=== PATIENT | female | born 1965 | race Caucasian/White ===

== ENCOUNTER 2021-02-09 08:54 | Inpatient (IN) ==
[2021-02-09] MEDS ORDERED: methylPREDNISolone 125 MG/2 ML VIAL IVP ONE (09:11)
[2021-02-09] MEDS ORDERED: Ipratropium/Albuterol Neb 3 ML IH ONE (09:11)
[2021-02-09] MEDS ORDERED: Azithromycin 500 MG in 0.9 % Sodium Chloride 250 ML IVPB ONE (09:11)
[2021-02-09] MEDS ORDERED: cefTRIAXone 1,000 MG in Water for inj. (sterile) 10 ML IVP ONE (09:11)
[2021-02-09] MEDS ORDERED: Ipratropium/Albuterol Neb 3 ML ONE (09:12)
[2021-02-09 09:25] LABS: Basophils # 0.1 K/mcL (0.0-0.2); Basophils % 0.7 %; Eosinophils # 1.3 K/mcL (0.0-0.6); Eosinophils % 13.2 %; Hematocrit 43.5 % (35.3-44.9); Hemoglobin 14.2 g/dL (11.5-15.4); Immature Granulocytes % 0.2 % (0-4); Lymphocytes # 2.2 K/mcL (0.6-4.6); Lymphocytes % 22.2 %; Mean Corpuscular HGB Conc 32.6 g/dL (31.6-35.5); Mean Corpuscular Hemoglobin 29.2 pg (28.0-33.3); Mean Corpuscular Volume 89.3 fL (83.0-100.0); Mean Platelet Volume 11.1 fL (9.4-12.4); Monocytes # 0.8 K/mcL (0.0-1.3); Monocytes % 7.6 %; Neutrophils # 5.5 K/mcL (1.6-8.9); Platelet Count 246 K/mcL (140-400); Red Blood Count 4.87 M/mcL (3.82-4.97); Red Cell Distribution Width 13.1 % (11.5-14.5); Segmented Neutrophils % 56.1 %; White Blood Count 9.8 K/mcL (4.3-11.1)
[2021-02-09 09:44] LABS: BUN/Creatinine Ratio 9 (6-26); Blood Urea Nitrogen 9 mg/dL (6-20); Calcium 10.3 mg/dL (8.6-10.3); Carbon Dioxide 27 mEq/L (23-29); Chloride 104 mEq/L (98-107); Glucose 84 mg/dL (70-105); Osmolality,Calculated 286 (280-300); Sodium 139 mEq/L (136-145); Troponin I < 0.03 ng/mL (< 0.04); eGFR For African Americans > 60 (> 60); eGFR For Non-African Americans > 60 (> 60)
[2021-02-09 11:50] LABS: Adenovirus Not Detected (Not Detect); Bordetella Pertussis Not Detected (Not Detect); Chlamydophila pneumoniae Not Detected (Not Detect); Coronavirus 229E Not Detected (Not Detect); Coronavirus HKU1 Not Detected (Not Detect); Coronavirus NL63 Not Detected (Not Detect); Coronavirus OC43 Not Detected (Not Detect); Human Metapneumovirus Not Detected (Not Detect); Human Rhinovirus/Enterovirus Not Detected (Not Detect); Influenza A Subtype 2009 H1 Not Detected (Not Detect); Influenza B Not Detected (Not Detect); Mycoplasma pneumoniae Not Detected (Not Detect); Parainfluenza Virus 1 Not Detected (Not Detect); Parainfluenza Virus 2 Not Detected (Not Detect); Parainfluenza Virus 3 Not Detected (Not Detect); Parainfluenza Virus 4 Not Detected (Not Detect); Respiratory Syncytial Virus Not Detected (Not Detect); SARS-CoV-2 Not Detected (Not Detect)
[2021-02-09] MEDS ORDERED: *HR* HYDROcodone/Acet 5/325 mg TABLET PO PRN (13:07)
[2021-02-09] MEDS ORDERED: Ondansetron 4 MG/2 ML VIAL IVP PRN (13:07)
[2021-02-09] MEDS ORDERED: Naloxone 0.4 MG/ML INJ IVP PRN (13:07)
[2021-02-09] MEDS ORDERED: Dextrose Gel 15 GM/37.5 ML TUBE PO PRN ×2 (13:11)
[2021-02-09] MEDS ORDERED: *HR* Dextrose 50 % in Water (Vial) 50 ML VIAL IVP PRN (13:11)
[2021-02-09] MEDS ORDERED: D5% in Water 1,000 ML IVC PRN (13:11)
[2021-02-09] MEDS ORDERED: ALPRAZolam 1 MG TABLET PO PRN (13:14)
[2021-02-09] MEDS: Ipratropium/Albuterol Neb 3 ML IH SCH ×2 (16:19→19:59)
[2021-02-09] MEDS: carvediloL 6.25 MG TABLET PO SCH (16:24)
[2021-02-09] MEDS: Insulin LISPRO 300 UNITS/3 ML VIAL SUBQ SCH (17:00)
[2021-02-09] MEDS: Doxycycline 100 MG in 0.9 % Sodium Chloride Mini Bag 100 ML IVPB SCH (18:49)
[2021-02-09] MEDS: MethylPREDNISolone 40 MG/ML VIAL IVP SCH (18:55)
[2021-02-09] MEDS: Budesonide/Formoterol 160/4.5 1 PUFF INH IH SCH (20:00)
[2021-02-09] MEDS ORDERED: Insulin DETEMIR 100 UNIT/ML X5UNITS SUBQ SCH (21:00)
[2021-02-09] MEDS: Insulin DETEMIR 100 UNIT/ML X5UNITS SUBQ SCH (21:16)
[2021-02-10] MEDS: Ipratropium/Albuterol Neb 3 ML IH SCH ×5 (00:08→15:29)
[2021-02-10 01:59] LABS: Basophils % 0.1 %; Eosinophils % 0.1 %; Hemoglobin 13.2 g/dL (11.5-15.4); Immature Granulocytes % 0.5 % (0-4); Lymphocytes % 5.9 %; Mean Corpuscular HGB Conc 32.2 g/dL (31.6-35.5); Mean Corpuscular Hemoglobin 29.5 pg (28.0-33.3); Mean Corpuscular Volume 91.7 fL (83.0-100.0); Mean Platelet Volume 11.7 fL (9.4-12.4); Monocytes % 1.4 %; Platelet Count 226 K/mcL (140-400); Red Blood Count 4.47 M/mcL (3.82-4.97); Red Cell Distribution Width 12.9 % (11.5-14.5); White Blood Count 9.3 K/mcL (4.3-11.1)
[2021-02-10 02:00] LABS: Lymphocytes # 0.6 K/mcL (0.6-4.6); Monocytes # 0.1 K/mcL (0.0-1.3); Neutrophils # 8.5 K/mcL (1.6-8.9)
[2021-02-10 02:18] LABS: BUN/Creatinine Ratio 20 (6-26); Blood Urea Nitrogen 19 mg/dL (6-20); Calcium 9.6 mg/dL (8.6-10.3); Carbon Dioxide 24 mEq/L (23-29); Chloride 99 mEq/L (98-107); Glucose 445 mg/dL (70-105); Magnesium 1.8 mg/dL (1.6-2.6); Osmolality,Calculated 302 (280-300); Phosphorous 3.3 mg/dL (2.7-4.5); Potassium 4.7 mEq/L (3.5-5.1); Sodium 135 mEq/L (136-145); eGFR For African Americans > 60 (> 60); eGFR For Non-African Americans > 60 (> 60)
[2021-02-10] MEDS: MethylPREDNISolone 40 MG/ML VIAL IVP SCH (06:06)
[2021-02-10] MEDS: *HR* Enoxaparin 40 MG/0.4 ML SYRINGE SQ SCH (06:07)
[2021-02-10] MEDS: Doxycycline 100 MG in 0.9 % Sodium Chloride Mini Bag 100 ML IVPB SCH (06:07)
[2021-02-10] MEDS: Budesonide/Formoterol 160/4.5 1 PUFF INH IH SCH ×2 (07:37→22:13)
[2021-02-10] MEDS: Doxycycline 100 MG CAPSULE PO SCH ×2 (08:06→20:52)
[2021-02-10] MEDS: BuPROPion SR (12 HR) 150 MG TABLET PO SCH (08:06)
[2021-02-10] MEDS: FLUoxetine 20 MG CAPSULE PO SCH (08:07)
[2021-02-10] MEDS: Aspirin Enteric Coated 81 MG Tablet PO SCH (08:07)
[2021-02-10] MEDS: carvediloL 6.25 MG TABLET PO SCH ×2 (08:08→17:17)
[2021-02-10] MEDS: Insulin LISPRO 300 UNITS/3 ML VIAL SUBQ SCH ×4 (08:08→17:17)
[2021-02-10] MEDS ORDERED: GuaiFENesin/Dextromethorphan TABLET PO PRN (16:29)
[2021-02-10] MEDS ORDERED: Insulin LISPRO 300 UNITS/3 ML VIAL SUBQ ONE (16:50)
[2021-02-10] MEDS: Levalbuterol Neb 1.25 MG/3 ML IH SCH ×2 (18:13→22:10)
[2021-02-10] MEDS: Insulin DETEMIR 100 UNIT/ML X5UNITS SUBQ SCH (20:53)
[2021-02-10] MEDS ORDERED: Insulin LISPRO 300 UNITS/3 ML VIAL SUBQ SCH (21:00)
[2021-02-11] MEDS: Levalbuterol Neb 1.25 MG/3 ML IH SCH ×2 (04:18→09:55)
[2021-02-11] MEDS: *HR* Enoxaparin 40 MG/0.4 ML SYRINGE SQ SCH (05:53)
[2021-02-11 07:18] VITALS: BP 118/58
[2021-02-11] MEDS: Insulin LISPRO 300 UNITS/3 ML VIAL SUBQ SCH (08:07)
[2021-02-11] MEDS: Aspirin Enteric Coated 81 MG Tablet PO SCH (08:08)
[2021-02-11] MEDS: Doxycycline 100 MG CAPSULE PO SCH (08:08)
[2021-02-11] MEDS: FLUoxetine 20 MG CAPSULE PO SCH (08:09)
[2021-02-11] MEDS: BuPROPion SR (12 HR) 150 MG TABLET PO SCH (08:09)
[2021-02-11] MEDS ORDERED: predniSONE 20 MG TABLET PO SCH (09:00)
[2021-02-11] MEDS: Budesonide/Formoterol 160/4.5 1 PUFF INH IH SCH (09:56)
[2021-02-11 14:57] LABS: Estimated Average Glucose 169 mg/dl; Hemoglobin A1C 7.5 %
== END 2021-02-11 10:48 | disposition home or self-care (01) | DRG 192 ==
LOC: EMEROOARM 08:54 → 3BNU 08:54 → SUATTDRO 13:24 → 3BNU 13:52
PROVIDERS: ADMIT Internal Medicine; ATTEND Registered Nurse

== ENCOUNTER 2021-08-14 08:01 | Observation (INO) ==
[2021-08-14] MEDS ORDERED: *HR* FentaNYL (PF) 100 MCG/2 ML VIAL IVP ONE ×2 (08:06→10:11)
[2021-08-14] MEDS ORDERED: *HR* FentaNYL (PF) 100 MCG/2 ML VIAL IM ONE (08:30)
[2021-08-14 09:47] LABS: Basophils # 0.1 K/mcL (0.0-0.2); Basophils % 0.6 %; Eosinophils # 0.3 K/mcL (0.0-0.6); Eosinophils % 2.5 %; Hematocrit 39.5 % (35.3-44.9); Hemoglobin 12.9 g/dL (11.5-15.4); Immature Granulocytes % 0.5 % (0-4); Lymphocytes # 1.3 K/mcL (0.6-4.6); Lymphocytes % 10.2 %; Mean Corpuscular HGB Conc 32.7 g/dL (31.6-35.5); Mean Corpuscular Hemoglobin 29.8 pg (28.0-33.3); Mean Corpuscular Volume 91.2 fL (83.0-100.0); Mean Platelet Volume 11.5 fL (9.4-12.4); Monocytes # 0.6 K/mcL (0.0-1.3); Monocytes % 4.9 %; Neutrophils # 10.6 K/mcL (1.6-8.9); Platelet Count 309 K/mcL (140-400); Red Blood Count 4.33 M/mcL (3.82-4.97); Red Cell Distribution Width 12.3 % (11.5-14.5); Segmented Neutrophils % 81.3 %
[2021-08-14 09:49] LABS: BUN/Creatinine Ratio 17 (6-26); Blood Urea Nitrogen 16 mg/dL (6-20); Calcium 9.8 mg/dL (8.6-10.3); Carbon Dioxide 27 mEq/L (23-29); Chloride 104 mEq/L (98-107); Glucose 143 mg/dL (70-105); Osmolality,Calculated 290 (280-300); Potassium 4.2 mEq/L (3.5-5.1); Sodium 138 mEq/L (136-145); eGFR For African Americans > 60 (> 60); eGFR For Non-African Americans > 60 (> 60)
[2021-08-14 09:57] LABS: Prothrombin Time 11.4 Seconds (9.4-12.1)
[2021-08-14] MEDS ORDERED: Naloxone 0.4 MG/ML INJ IVP PRN ×2 (10:08→18:28)
[2021-08-14] MEDS ORDERED: Ondansetron 4 MG/2 ML VIAL IVP PRN ×2 (10:08→18:28)
[2021-08-14] MEDS ORDERED: Morphine Sulfate 2 MG/ML SYRINGE IVP PRN ×3 (10:11→18:28)
[2021-08-14] MEDS ORDERED: D5% in Water 1,000 ML IVC PRN ×3 (10:12→18:28)
[2021-08-14] MEDS ORDERED: *HR* Dextrose 50 % in Water (Syg) 50 ML SYRINGE IVP PRN ×3 (10:12→18:28)
[2021-08-14] MEDS ORDERED: Dextrose Gel 15 GM/37.5 ML TUBE PO PRN ×6 (10:12→18:28)
[2021-08-14] MEDS ORDERED: Insulin LISPRO 300 UNITS/3 ML VIAL SUBQ SCH ×2 (10:13→16:00)
[2021-08-14] MEDS ORDERED: Ipratropium/Albuterol Neb 3 ML IH PRN ×2 (13:42→18:28)
[2021-08-14] MEDS ORDERED: Ketorolac 15 MG/ML VIAL IVP ONE (16:34)
[2021-08-14] MEDS ORDERED: Acetaminophen IV 1,000 MG/100 ML BAG IVPB ONE ×3 (16:34→18:34)
[2021-08-14] MEDS ORDERED: Ropivacaine/PF 0.5% 30 ML VIAL ONE (17:36)
[2021-08-14] MEDS ORDERED: ROPIVACAINE/PF/NS 0.25% 1 EACH SYRINGE INTRAART ONE (17:37)
[2021-08-14] MEDS ORDERED: *HR* FentaNYL (PF) 100 MCG/2 ML VIAL ONE ×2 (17:41→18:01)
[2021-08-14] MEDS ORDERED: *HR* Midazolam HCl 2 MG/2 ML VIAL ONE (17:41)
[2021-08-14] MEDS ORDERED: Ondansetron 4 MG/2 ML VIAL ONE (17:45)
[2021-08-14] MEDS ORDERED: Lidocaine -MPF 2% 5 ML VIAL ONE (17:45)
[2021-08-14] MEDS ORDERED: *HR* Propofol 200 MG/20 ML VIAL IVP ONE (17:45)
[2021-08-14] MEDS ORDERED: Lidocaine/EPI 1:100k 1% 20 ML VIAL ONE (18:18)
[2021-08-14] MEDS ORDERED: Famotidine 20 MG/2 ML VIAL ONE (18:29)
[2021-08-14] MEDS ORDERED: CeFAZolin Syr 2,000MG/20 ML 2,000 MG/20 ML SYRINGE IVPB ONE (18:41)
[2021-08-14] MEDS ORDERED: *HR* HYDROMORPHONE 2 MG/ML VIAL ONE (20:01)
[2021-08-15] MEDS ORDERED: CeFAZolin 2,000 MG/120 ML BAG IVPB SCH ×2
[2021-08-15] MEDS: Insulin LISPRO 300 UNITS/3 ML VIAL SUBQ SCH ×5 (01:38→11:38)
[2021-08-15] MEDS ORDERED: *HR* Enoxaparin 40 MG/0.4 ML SYRINGE SQ SCH ×2 (07:00)
[2021-08-15 07:48] LABS: Basophils % 0.3 %; Hematocrit 35.3 % (35.3-44.9); Hemoglobin 11.6 g/dL (11.5-15.4); Immature Granulocytes % 0.7 % (0-4); Lymphocytes % 8.4 %; Mean Corpuscular HGB Conc 32.9 g/dL (31.6-35.5); Mean Corpuscular Hemoglobin 30.1 pg (28.0-33.3); Mean Corpuscular Volume 91.7 fL (83.0-100.0); Mean Platelet Volume 11.9 fL (9.4-12.4); Monocytes # 0.8 K/mcL (0.0-1.3); Monocytes % 6.8 %; Neutrophils # 9.9 K/mcL (1.6-8.9); Platelet Count 281 K/mcL (140-400); Red Blood Count 3.85 M/mcL (3.82-4.97); Red Cell Distribution Width 12.4 % (11.5-14.5); Segmented Neutrophils % 83.8 %; White Blood Count 11.9 K/mcL (4.3-11.1)
[2021-08-15] MEDS ORDERED: *HR* OxyCODONE Immed Rel 5 MG TABLET PO PRN (07:56)
[2021-08-15 08:14] LABS: Calcium 9.6 mg/dL (8.6-10.3); Magnesium 1.6 mg/dL (1.6-2.6); Potassium 4.3 mEq/L (3.5-5.1)
[2021-08-15] MEDS ORDERED: ALPRAZolam 1 MG TABLET PO PRN (08:32)
[2021-08-15] MEDS ORDERED: FLUoxetine 20 MG CAPSULE PO SCH (09:00)
[2021-08-15] MEDS ORDERED: BuPROPion SR (12 HR) 150 MG TABLET PO SCH (09:00)
[2021-08-15] MEDS ORDERED: Budesonide/Formoterol 160/4.5 1 PUFF INH IH SCH (09:00)
[2021-08-15] MEDS ORDERED: Patient Taking Own Medication 1 EACH PO SCH (09:00)
[2021-08-15] MEDS ORDERED: lisinopriL 5 MG TABLET PO SCH (09:00)
[2021-08-15] MEDS ORDERED: Aspirin Enteric Coated 81 MG Tablet PO SCH (09:00)
[2021-08-15] MEDS ORDERED: 0.9 % Sodium Chloride 1,000 ML IVC SCH (10:00)
[2021-08-15] MEDS ORDERED: Levalbuterol Neb 1.25 MG/3 ML IH SCH (10:00)
[2021-08-15] MEDS ORDERED: Tiotropium 10 INH DOSE IH SCH (10:00)
[2021-08-15 11:05] VITALS: BP 131/56; PULSE 113; TEMP 98.3; O2SAT 95
[2021-08-15] MEDS ORDERED: Insulin DETEMIR 100 UNIT/ML X5UNITS SUBQ SCH (21:00)
== END 2021-08-15 15:20 | disposition home or self-care (01) ==
LOC: 4WAOSI 08:01 → EMEROOARM 08:01 → SUATTDRO 09:18 → 4WAOSI 10:36
PROVIDERS: ADMIT Pharmacist; ATTEND Internal Medicine